=== PATIENT | female | born 1960 | race Caucasian/White ===

== ENCOUNTER → 2017-06-21 | Outpatient (CLI) | payer OTHER ==
[~2017-06-21] MED LIST: AMLO5 PO; CRUTCH4 USE; DIPH25 PO; HYDACE5 PO; HYDCHL25 PO; OMEP20ER PO; PRED10 PO; RANI150 PO
[2017-06-22 12:39] LABS: Alanine Aminotransfer (ALT/SGP 32 U/L (12-78); Albumin, Blood 3.8 g/dL (3.4-5.0); Albumin/Globulin Ratio 1.1 (0.8-1.8); Alk Phos 95 U/L (50-136); Anion Gap 6 mmol/L (6-16); Aspartate Aminotrans (AST/SGOT 24 U/L (12-37); Bilirubin, Total 0.5 mg/dL (0.1-1.0); Blood Urea Nitrogen 15 mg/dL (8-24); Bun/Creatinine Ratio 16.9 (12.0-20.0); CO2, Blood 27 mmol/L (21-32); Calcium, Blood 8.9 mg/dL (8.5-10.1); Chloride, Blood 108 mmol/L (98-108); Creatinine, Blood 0.89 mg/dL (0.40-1.00); Globulin, Blood 3.4 g/dL (2.2-4.0); Glomerular Filtration Rate >60 (60-); Glucose, Blood 88 mg/dL (70-99); Potassium, Blood 3.7 mmol/L (3.5-5.5); Sodium, Blood 141 mmol/L (136-145); Total Protein, Blood 7.2 g/dL (6.4-8.2)
== END | disposition home or self-care (01) ==
LOC: LAB SHORT 11:35 → LAB 11:35
PROVIDERS: Nurse Practitioner Family
DX: R10.9 Unspecified abdominal pain (principal)
CPT/HCPCS: 80053; 83690

== ENCOUNTER → 2017-06-22 | Outpatient (CLI) | payer OTHER ==
[2017-06-22 14:06] LABS: BASOPHILS ABSOLUTE AUTO 0.03 K/mm3 (0.00-0.23); BASOPHILS PERCENT AUTO 0 % (0-2); EOSINOPHILS ABSOLUTE AUTO 0.14 K/mm3 (0.00-0.68); EOSINOPHILS PERCENT AUTO 2 % (0-6); Hematocrit 41.5 % (33.0-51.0); IMMATURE GRAN ABSOLUTE AUTO 0.06 K/mm3 (0.00-0.10); IMMATURE GRAN PERCENT AUTO 1 % (0-1); LYMPHOCYTES ABSOLUTE AUTO 2.44 K/mm3 (0.84-5.20); LYMPHOCYTES PERCENT AUTO 34 % (21-46); MONOCYTES ABSOLUTE AUTO 0.51 K/mm3 (0.16-1.47); MONOCYTES PERCENT AUTO 7 % (4-13); Mean Corpuscular HGB 30.2 pg (26.0-34.0); Mean Corpuscular HGB Conc 33.7 g/dL (31.5-36.5); Mean Corpuscular Volume 90 fL (80-100); Mean Platelet Volume 10.9 fL (9.1-12.4); NEUTROPHILS ABSOLUTE AUTO 4.11 K/mm3 (1.96-9.15); NEUTROPHILS PERCENT AUTO 56 % (41-73); Platelet Count 193 K/mm3 (150-400); RDW Coefficient Variation 12.9 % (11.7-14.2); RDW Standard Deviation 42.4 fL (35.1-46.3); Red Blood Cell Count 4.63 M/mm3 (3.80-5.20); White Blood Cell Count 7.29 K/mm3 (4.00-11.30)
== END | disposition home or self-care (01) ==
LOC: LAB 13:53 → LAB SHORT 13:53
PROVIDERS: Nurse Practitioner Family
DX: R10.9 Unspecified abdominal pain (principal)
CPT/HCPCS: 85025

== ENCOUNTER 2018-07-25 06:48 | Day surgery (SDC) | payer OTHER ==
[~2018-07-25] VITALS: Ht 162.6 cm; Wt 104.0 kg
[~2018-07-25 06:48] MED LIST changes: +ASPI81CH PO; +LOSA25 PO; +METO25ER PO; +VITAMIN D-32000 UNIT PO
[2018-07-25] MEDS ORDERED: ATOR40TA PO (07:03)
--- NOTE | 2018-07-25 08:43 | NUR ---
PT RETURNS TO RECOVERY AWAKE, CONVERSING WITH NURSING STAFF. NO C/O PAIN BUT DOES STATE "SOME MILD ACHING" IN RIGHT WRIST ACCESS SITE. NO BLEEDING OR SWELLING NOTED. CAP REFILL BRISK. CMS WNL TO RIGHT HAND. NO C/O CP.
--- NOTE | 2018-07-25 09:21 | NUR ---
PT EATING BREAKFAST AT THIS TIME. NO C/O OF PAIN OR DISCOMFORT. NO BLEEDING OR SWELLING NOTED TO RIGHT WRIST AREA. CMS INTACT TO HAND.
--- NOTE | 2018-07-25 10:20 | NUR ---
RIGHT RADIAL TR BAND SITE SOFT NON-TENDER WITH NO HEMATOMA NO PULSATILE BLEEDING. PT DESCRIBES "TENDERNESS" AT SITE. PT WATCHING TV.
--- NOTE | 2018-07-25 11:16 | NUR ---
TR BAND FULLY DEFLATED PER POLICY. NO BLEEDING OR SWELLING NOTED. REVIEWED DISCHARGE INSTRUCTIONS WITH PATIENT WHO VERBALIZES UNDERSTANDING OF ALL INSTRUCTIONS GIVEN. PT ALSO READ THROUGH PRINTED HANDOUTS. PT UP TO BATHROOM AT THIS TIME - STEADY ON FEET.
== END 2018-07-25 11:30 | disposition home or self-care (01) ==
LOC: MHTC 06:48
DX: I25.10 Atherosclerotic heart disease of native coronary artery without angina pectoris (principal); R00.1 Bradycardia, unspecified; I10 Essential (primary) hypertension; E78.5 Hyperlipidemia, unspecified; E66.01 Morbid (severe) obesity due to excess calories; Z79.899 Other long term (current) drug therapy; Z79.82 Long term (current) use of aspirin; Z88.8 Allergy status to other drugs, medicaments and biological substances; Z88.2 Allergy status to sulfonamides; Z68.39 Body mass index [BMI] 39.0-39.9, adult
CPT/HCPCS: 93458; 99152; 99153; C1769; C1894; J1644; J2250; J3010; J7030; Q9967

== ENCOUNTER 2022-06-23 07:15 | Day surgery (SDC) | payer OTHER ==
[~2022-06-23 07:15] MED LIST changes: +ATOR40TA PO
== END 2022-06-23 23:28 | disposition home or self-care (01) ==
LOC: CT 07:15
DX: I25.10 Atherosclerotic heart disease of native coronary artery without angina pectoris (principal); I25.84 Coronary atherosclerosis due to calcified coronary lesion; R07.89 Other chest pain; R00.1 Bradycardia, unspecified; I10 Essential (primary) hypertension; E78.5 Hyperlipidemia, unspecified; E66.9 Obesity, unspecified; Z68.38 Body mass index [BMI] 38.0-38.9, adult; Z88.2 Allergy status to sulfonamides; Z79.82 Long term (current) use of aspirin; Z79.899 Other long term (current) drug therapy
CPT/HCPCS: 75574; Q9967